=== PATIENT | female | born 1985 | race Hispanic/Latino ===

== ENCOUNTER 2016-11-19 09:08 | Day surgery (SDC) | payer BC ==
[2016-11-15 10:21] LABS: Hematocrit 39.5 % (30.3-42.9); Mean Corpuscular HGB Conc 33 % (30-34); Mean Corpuscular Hemoglobin 27 pg (28-32); Mean Corpuscular Volume 83 fl (79-97); Platelet Count 344 K/mm3 (140-440); Red Blood Count 4.78 M/mm3 (3.65-5.03); Red Cell Distribution Width 13.8 % (13.2-15.2); White Blood Count 10.2 K/mm3 (4.5-11.0)
--- NOTE | 2016-11-15 10:27 | Anesthesia Consultation ---
Anesthesia Consult and Med Hx Date of service: 11/15/16 - Airway Anesthetic Teeth Evaluation: Good, Crowns ROM Head & Neck: Adequate Mental/Hyoid Distance: Adequate Mallampati Class: Class II Intubation Access Assessment: Probably Good - Pulmonary Exam CTA: Yes - Cardiac Exam Cardiac Exam: RRR - Pre-Operative Health Status ASA Pre-Surgery Classification: ASA3 Proposed Anesthetic Plan: General - Pulmonary Hx Smoking: Yes - Central Nervous System Hx Psychiatric Problems: No - Other Systems Hx Alcohol Use: Yes (occas) Hx Cancer: No Hx Obesity: Yes (BMI 44) - Additional Comments Anesthesia Medical History Comments: NAC
--- NOTE | 2016-11-18 13:05 | History and Physical Report ---
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 Operations: Cholecystectomy Abnormal PAP: positive Infection History Hx of STD: HSV Active Medications (reviewed today): IBUPROFEN 800 MG TABS (IBUPROFEN) 1 po TID (PRN) OXYCODONE-ACETAMINOPHEN 5-325 MG TABS (OXYCODONE-ACETAMINOPHEN) 1-2po q6h prn TRANEXAMIC ACID 650 MG TABS (TRANEXAMIC ACID) 1300 mg(2 tabs) 3 times daily ( 3900 mg daily) for up to 5 days during monthly menstruation Current Allergies (reviewed today): No known allergies Past Medical History: Reviewed history from 10/18/2009 and no changes required: Negative Past Medical History Past Surgical History: Reviewed history from 10/18/2009 and no changes required: Cholecystectomy Risk Factors: Smoked Tobacco Use: Never smoker Alcohol use: yes Type: occ PAP Smear History: Date of Last PAP Smear: 09/27/2015 Review of Systems General Denies fever, chills, sweats, anorexia, fatigue, weakness, malaise, weight loss and sleep disorder. Complains of menorrhagia. Denies vaginal discharge, incontinence, dysuria, hematuria, urinary frequency, amenorrhea, abnormal vaginal bleeding, pelvic pain, genital sores, decreased libido, painful periods, painful sex, urinary urgency, hot flashes, vaginal dryness, vaginal itching and vaginal odor. CV Denies chest pains, palpitations, syncope, dyspnea on exertion, orthopnea, PND and peripheral edema. Resp Denies cough, dyspnea at rest, excessive sputum, hemoptysis, wheezing and pleurisy. GI Denies nausea, vomiting, diarrhea, constipation, change in bowel habits, abdominal pain, melena, hematochezia, jaundice, gas/bloating, indigestion/ heartburn, dysphagia and odynophagia. Endo Denies cold intolerance, heat intolerance, polydipsia, polyphagia, polyuria and unusual weight change. Breast Denies left breast lump, right breast lump, nipple discharge, bloody discharge from nipple, breast pain, abnormal mammogram and breast enlargement. MS Denies back pain, joint pain, joint swelling, muscle cramps, muscle weakness, stiffness, arthritis, sciatica, restless legs, leg pain at night and leg pain with exertion. Derm Denies rash, itching, dryness and suspicious lesions. Neuro Denies paralysis, paresthesias, headache, seizures, tremors, vertigo, transient blindness, frequent falls, frequent headaches and difficulty walking. Psych Denies depression, anxiety, irritability and mood swings. Eyes Denies blurring, diplopia, irritation, discharge, vision loss, eye pain and photophobia. ENT Denies earache, ear discharge, tinnitus, decreased hearing, nasal congestion, nosebleeds, sore throat and hoarseness. Allergy Denies urticaria, allergic rash, hay fever and recurrent infections. Heme Denies abnormal bruising, bleeding and enlarged lymph nodes. Physical Exam Appearance: well developed, well nourished, no acute distress Other Exams Lungs: no rales, rhonchi, or wheezes Heart: S1, S2, no murmur, rub, or gallop Abdomen: soft, non-tender, no masses Skin: no ulcers, xanthomas Lymph: no cervical, axillary, or inguinal adenopathy Extremities: normal alignment, no joint enlargement, crepitus, masses or tenderness; normal tone and strength Genitourinary Exam Vulva: normal, no lesions or discharge Urethral meatus: normal size and location, no lesions or discharge Urethra: no discharge Bladder: no cystocele Vagina: normal appearance, no discharge, lesions. No evidence of cystocele or rectocele. Cervix: normal appearance, no lesions, no discharge Uterus: normal position, midline, mobile Adnexa: no masses or tenderness Impression & Recommendations: Problem # 1: Menorrhagia (ICD-626.2) (PEI66-G09.0) Consent reviewed and signed . Possible laparoscopy or laparotomy explained to patient. The risks and alternatives for this surgery were reviewed with the patient. She was informed of possible bleeding, infection, injury to bowel, bladder, ureters or other adjacent organs. She was informed the bleeding may continue to be heavy or may become heavy again The only definitive therapy for menorrhagia is hysterectomy. The patient was instructed/informed the following: The normal length of hospital stay for this procedure. Nothing to eat or drink after midnight the evening prior to surgery. Clear liquids the day before surgery. Fleets enema the day prior to surgery. Pre-op instruction sheets given. Wound care instructions given. Infection precautions reviewed, patient to call for any signs or symptoms of infection. The usual discomforts associated with this procedure were detailed. Proper use of pain medicines was reviewed. Patient was given ample opportunity to have all her questions answered before signing informed consent. She desires to proceed with Hysteroscopy, D&C, excision of endometrial mass and endometrial ablation. Problem # 2: Sterilization (ICD-V25.2) (LLM91-S87.2) Risks of regret emphasized. Permanent and irreversible condition explained to patient. Pt verbalized understanding. Consent reviewed and signed. Pre- operative instructions sheets given. The risks and alternatives to this surgery were reviewed with the patient. Infection precautions reviewed, pt to call for any signs or symptoms of infection. Patient given ample opportunity to have all her questions answered before signing informed consent. Patient informed of possible bleeding. 1%failure rate emphasized She desires salpingectomy for sterilization Problem # 3: Endometrial mass (ICD-236.0) (PWG97-U73.0) Problem # 4: Fibroids of uterus; Subserosal (ICD-218.2) (OPC96-J79.2) Her updated medication list for this problem includes: Ibuprofen 800 Mg Tabs (Ibuprofen) ..... 1 po tid (prn) Oxycodone-acetaminophen 5-325 Mg Tabs (Oxycodone-acetaminophen) ..... 1-2po q6h prn Medications Added to Medication List This Visit: 1) Ibuprofen 800 Mg Tabs (Ibuprofen) .... 1 po tid (prn) 2) Oxycodone-acetaminophen 5-325 Mg Tabs (Oxycodone-acetaminophen) .... 1-2po q6h prn Prescriptions: IBUPROFEN 800 MG TABS (IBUPROFEN) 1 po TID (PRN) #30 x 0 Entered and Authorized by: Heather Thaap MD Method used: Print then Give to Patient RxID: [id number] OXYCODONE-ACETAMINOPHEN 5-325 MG TABS (OXYCODONE-ACETAMINOPHEN) 1-2po q6h prn # 15 x 0 Entered and Authorized by: Heather Thapa MD Method used: Print then Give to Patient RxID: [id number] Medications and Allergies Allergies Allergy/AdvReac Type Severity Reaction Status Date / Time No Known Allergies Allergy Unverified 11/12/16 11:28 Home Medications Medication Instructions Recorded Confirmed Last Taken Type No Known Home Medications [No 11/12/16 11/12/16 Unknown History Reported Home Medications] Active Meds: Active Medications Famotidine (Pepcid) 20 mg PO PREOP NR Stop: 11/19/16 23:59 Lactated Ringer's (Lactated Ringers) 1,000 mls @ 100 mls/hr IV DIRECT ALEX Stop: 11/19/16 23:59 Cefazolin Sodium (Ancef/Sterile Water 2 Gm/20 Ml) 2 gm in 20 mls @ 80 mls/hr IV PREOP NR PRN Reason: Protocol Stop: 11/19/16 23:59 Metoclopramide HCl (Reglan) 10 mg PO PREOP NR Stop: 11/19/16 23:59 Midazolam HCl (Versed) 2 mg IV PREOP NR Stop: 11/19/16 23:59 Exam Vital Signs Temp Pulse Resp BP 99.2 F 84 16 138/80 11/15/16 10:00 11/15/16 10:00 11/15/16 10:00 11/15/16 10:00 Results - Labs 11/15/16 10:05 Assessment and Plan - Patient Problems (1) Menorrhagia Status: Acute Qualifiers: Menorrahagia type: M (2) Sterilization Status: Acute
[~2016-11-19 09:08] MED LIST: ANCEF/STERILE WATER 2 GM/20 ML 2 GM/20 ML SYRINGE IV NR; LACTATED RINGERS 1,000 ML IV SCH; PEPCID PO NR; REGLAN PO NR; VERSED IV NR
[2016-11-19] MEDS ORDERED: NACL BACTERIOSTATIC INFILTRATI ONE (09:37)
[2016-11-19] MEDS ORDERED: DILAUDID ONE ×2 (10:52→15:16)
[2016-11-19] MEDS ORDERED: DIPRIVAN 10 MG/ML IV ONE (10:52)
--- NOTE | 2016-11-19 12:40 | Anesthesia Day of Surgery ---
Anesthesia Day of Surgery - Day of Surgery Patient Examined: Yes Patient H&P Reviewed: Yes Patient is NPO: Yes
[2016-11-19] MEDS ORDERED: ROBINUL ONE (12:58)
[2016-11-19] MEDS ORDERED: TRANSDERM-SCOP TD NR (13:00)
[2016-11-19] MEDS ORDERED: DECADRON ONE (13:16)
[2016-11-19] MEDS ORDERED: BLOXIVERZ ONE (13:16)
[2016-11-19] MEDS ORDERED: ZOFRAN ONE (13:16)
[2016-11-19] MEDS ORDERED: ZEMURON IV ONE (13:17)
[2016-11-19] MEDS ORDERED: XYLOCAINE MPF 2% ONE (13:17)
[2016-11-19] MEDS ORDERED: QUELICIN ONE (13:17)
[2016-11-19] MEDS ORDERED: NACL 0.9% IR ONE (14:00)
--- NOTE | 2016-11-19 14:49 | Operative Report ---
Operative Report Operative Report: Date of procedure: 11/19/2016 Pre-operative diagnosis: 1. Menorrhagia 2. Desires sterilization by bilateral salpingectomy Post-operative diagnosis: 1. Menorrhagia 2. Desires sterilization by bilateral salpingectomy Procedure name(s): 1. Diagnostic hysteroscopy 2. Dilation and curettage 3. NovaSure ablation 4. Laparoscopic bilateral salpingectomy Surgeon: Heather Thapa MD Signal Intelligence Analyst: [] Anesthesia: Gen. anesthesia Findings: Uterine cavity length 5 cm, Uterine cavity width 4.4 cm Ablation time 65 seconds Power 121 W Complications: None EBL: Minimal Procedure: After risks, benefits, complications, consequences, and alternatives for this procedure were discussed the patient and she voiced understanding and her desire to proceed, she was taken to the OR and placed in the supine position. General anesthesia was induced. The patient was placed in the dorsal lithotomy position. She was then prepped and draped in the usual sterile fashion. Timeout was performed. A Santillan catheter was introduced into the bladder with drainage of clear yellow urine. A bivalve speculum was introduced into the vagina. The anterior lip the cervix was grasped with a single-tooth tenaculum. The uterus was sounded to approximately 9 cm. The cervix was progressively dilated to allow the diagnostic hysteroscope. Grossly normal intrauterine cavity was noted. No obvious evidence perforation or intrauterine mass noted. Uterine curettage was performed. The hysteroscope was introduced again. Again no evidence of perforation was noted. Cervical length was measured to be 4 cm. Therefore uterine cavity length was 5 cm. Cavity length on the NovaSure ablation device was set at 5 cm. The NovaSure device was then placed inside the uterine cavity. The array was released. Uterine cavity width was measured at 4.4 cm. Once the cavity integrity was confirmed, ablation was performed at 121 W of energy for 65 seconds. The device was removed. The hysteroscope was reintroduced into the uterine cavity. Good ablation was noted. No obvious evidence of perforation was noted. A PartTec uterine manipulator was introduced into the uterus. Single-toothed tenaculum and speculum were removed. Sterile gloves were placed, and attention was turned to the abdomen. A 5 mm infraumbilical incision was made. A 5 mm Optiview trocar was introduced through this incision with scope and camera attached under direct visualization. No bowel, bladder, ureteral, or major vascular injury was noted. The abdomen was insufflated, and patient was placed in steep Trendelenburg position. Again no bowel, bladder, ureteral or major vascular injury was noted. A 5 mm trochar was placed in the midline suprapubic region approximately 2 cm above the symphysis under direct visualization. Again no bowel, bladder, ureteral or major vascular injury was noted. An additional 5 mm trocar was placed in the right lower abdominal region through an incision. No bowel bladder or ureteral or major vascular injury was noted. The uterus was elevated and using the 5 mm LigaSure device the tubes were removed. Specimens were sent to pathology as permanent and separate containers. The abdomen was desufflated under direct visualization. Hemostasis was noted. The pelvis was inspected and again no bowel, bladder, ureteral or major vascular injury was noted. Also hemostasis at the operative site was noted. The lower abdominal trochars were removed under direct visualization. Hemostasis was noted. The abdomen was desufflated appeared. The infraumbilical trocar was removed. The incisions were reapproximated using 4-0 Vicryl in a subcuticular manner. Hemostasis was noted. The incisions were healed with Surgiseal. The Sargis uterine manipulator was removed, no bleeding from the vagina was noted the procedure was ended. The patient tolerated the procedure well and was taken to recovery room in stable condition. Saline solution was used along with the Aquilex management device. Fluid deficit was noted to be 131 mL. There was approximately 75 mL of saline solution on the floor at the end of the procedure. Counts were correct x3.
[2016-11-19] MEDS ORDERED: TORADOL IV ONE (14:50)
--- NOTE | 2016-11-19 14:56 | Discharge Summary ---
Providers - Providers Attending physician: LEONIE BARRERA Primary care physician: KERI SANDERSON Hospitalization Condition: Good Hospital course: Normal Disposition: DISCHARGED TO HOME OR SELFCARE - Discharge Diagnoses (1) Menorrhagia Status: Acute Qualifiers: Menorrahagia type: M (2) Sterilization Status: Acute Core Measure Documentation - Palliative Care Palliative Care/ Comfort Measures: Not Applicable - Core Measures Any of the following diagnoses?: none Exam - Constitutional Vitals: Temp Pulse Resp BP Pulse Ox 98.6 F 89 24 113/71 97 11/19/16 10:58 11/19/16 10:58 11/19/16 10:58 11/19/16 10:58 11/19/16 10:58 General appearance: Present: no acute distress - Respiratory Respiratory effort: normal - Cardiovascular Rhythm: regular - Abdominal Female genitourinary: Present: deferred - Psychiatric Psychiatric: appropriate mood/affect Plan Activity: advance as tolerated (No sex [id number]) Weight Bearing Status: Weight Bear as Tolerated Diet: regular Wound: open to air, keep clean and dry Special Instructions: no heavy lifting Follow up with: LEONIE BARRERA MD [Staff Physician] - 7 Days
--- NOTE | 2016-11-19 15:06 | Post Anesthesia Evaluation ---
- Post Anesthesia Evaluation Patient Participated: Yes Airway Patent: Yes Stable Respiratory Function: Yes Nausea/Vomiting: No Temp > 96.8F: Yes Pain Manageable: Yes Adequeate Hydration: Yes Anesthesia Complications: No Block Receding Appropriately: Not Applicable Patient on Ventilator: No
[2016-11-19] MEDS: DILAUDID IV PRN ×2 (15:15→15:30)
[2016-11-19 17:25] VITALS: BP 110/68
--- NOTE | 2016-11-20 01:12 | Admit Criteria Form ---
Admission Criteria Documentation: AMBULATORY SURGERY EXCEPTION CRITERIA Ambulatory Surgery Exception Criteria ( Place 'X' for any and all applicable criteria): Surgery or procedure performed on ambulatory basis may require inpatient stay for[A] ANY ONE of the following(1)(2)(3)(4)(5)(6)(7)(8)(9): [X] I. A preoperative situation, condition, or finding that warrants inpatient stay as indicated by ANY ONE of the following: [] a) Inpatient care needed because of severity of a disease or condition rather than the surgery (eg, severe cardiac or respiratory disease, severe infection) (15) (16 ) (17) (18) [] b) Emergent procedure (eg, angioplasty for acute ischemia)(19) [] c) Complex surgical approach or situation as indicated by ANY ONE of the following(3): [] i) Open approach needed instead of usual endoscopic, transcatheter, or other less invasive procedure [] ii) Difficult approach because of previous operation [] iii) Airway monitoring required after open neck procedures(20)(21) [] iv) Large mass requiring unusually extensive dissection [] v) Additional complicating feature requiring inpatient care (eg, drain management)(22(23): [X] d) Major surgery in a pt with high anesthetic risk as indicated by ANY ONE of the following (2)(3)(5)(7)(8): [X] i) ASA risk class III or higher (severe systemic disease impairing function) [D] [] ii) Advanced age (eg, older than 85 years)(14)(24) [] iii) Symptomatic heart failure(25) [] iv) Symptomatic asthma or COPD(8)(21) [] v) Morbid obesity with hemodynamic or respiratory problems(20)( 21)(26)(27) [] vi) Obstructive sleep apnea(20)(21) [] vii) Former premature infants who are younger than 60 weeks [] viii) High risk for severe postoperative abnormalities (eg, severe postoperative hypocalcemia after parathyroidectomy for severe hyperparathyroidism)(27)( 28) [] ix) Unstable angina(25) [] e) Drug-related risk requiring inpatient stay as indicated by ANY ONE of the following(5)(10)(14)(32)(33) [] i) Procedure requires discontinuing drugs or other therapy (eg , antiarrhythmic medication, antiseizure medication), which necessitates inpatient observation or treatment.(18)(31) [] ii) Major surgery and high risk drug use as indicated by ANY ONE of the following: [] 1) Active abuse of cocaine or similar drug [] 2) Monoamine oxidase inhibitor use [] 3) Other drug identified as posing risk [] f) Inadequate outpatient care situation as indicated by ANY ONE of the following(5)(10)(14)(32)(33) [] i) Patient lives remote from medical facility and procedure has urgent complication potential, and temporary nearby residence cannot be arranged [] ii) Patient will have postprocedure incapacitation and inadequate assistance at home, or alternative level of care cannot be arranged. [] iii) Patient will have long general anesthesia or procedure side effect resolution time, and competent person to stay with patient on first postoperative night at home or alternative level of care cannot be arranged. []iv) Other inadequate outpatient situation that cannot be handled by other means [] II. A perioperative event, condition, or finding that warrants inpatient stay as indicated by ANY ONE of the following (1)(2)(3): [] a) Inadequate physiologic recovery: cardiovascular, respiratory, or hemodynamic status not normal or near preoperative baseline(18) [] b) Hemodynamic instability [] c) Patient not alert with near normal or baseline mental status [] d) Temperature not normal or as expected and not appropriate for outpatient treatment of condition [] e) Ambulatory or appropriate activity level status not yet achieved post procedure [E](34)(35)(36) [] f) Operative site not appropriate (eg, unexpected or excessive drainage or bleeding) [] g) Postoperative effects not resolved or adequately managed (eg, significant pain or vomiting not appropriate for outpatient or next level of care)(10)(12) [] h) Complicating features requiring inpatient care as indicated by ANY ONE of the following(37): [] i) Severe complications of procedure (eg, bowel injury, airway compromise, vascular injury,severe hemorrhage) [] ii) Extensive (eg, dissection far beyond usual scope of procedure ) or prolonged (eg, 120 minutes beyond usual) surgery needed requiring inpatient postoperative care [] iii) Conversion to an open or complex procedure that requires inpatient care (eg, open vs laparoscopic cholecystectomy, abdominal vs vaginal hysterectomy)(38) [] iv) Comorbid condition or test result identified during or post procedure that requires inpatient care (7) [] v) Malignant hyperthermia(30) [] vi) Other complicating feature requiring inpatient care(22)(23) Inpatient stay may be needed until ALL of the following are present (1)(2)(3)(4) (5)(6)(10)(14)(33)(40): []a) Physiologic recovery: cardiovascular, respiratory, and hemodynamic status normal or near preoperative baseline []b) Hemodynamic stability []c) Patient alert, with near normal or baseline mental status []d) Temperature appropriate: patient afebrile or temperature appropriate for outpt treatment of condition []e) Activity level appropriate: ambulatory or appropriate activity level post procedure []f) Operative site appropriate as indicated by ALL of the following: []i) Site dry or with expected drainage []ii) Any blood noted is as expected for procedure. []g) Postoperative effects resolved or managed as indicated by ALL of the following: []i) Pain management appropriate for outpatient (or next level of) care(10) []ii) Minimal nausea and vomiting: if present, successfully treated with oral medication(12) []iii) Headache, dizziness, or drowsiness (if present) are mild. []h) Voiding status acceptable as indicated by ANY ONE of the following: []i) Voiding spontaneously []ii) No voiding but instructions given for follow-up in 6 to 8 hours []iii) Urinary catheter in place, and instructions given for follow-up []i) Complicating features requiring inpatient care manageable at a lower level of care(37) []j) Comorbid conditions manageable at a lower level of care(37) The original [employer] content created by [employer] has been revised. The portions of the content which have been revised are identified through the use of italic text or in bold, and [facility] [employer] has neither reviewed nor approved the modified material. All other unmodified content is copyright [employer]. Please see references footnoted in the original [employer] edition 2016 Admission Criteria Met: Yes
== END 2016-11-19 16:55 | disposition home or self-care (01) ==
LOC: OR 09:08
PROVIDERS: ATTEND Obstetrics & Gynecology
DX: Z30.2 Encounter for sterilization (principal); N92.0 Excessive and frequent menstruation with regular cycle; E66.9 Obesity, unspecified; Z68.41 Body mass index [BMI] 40.0-44.9, adult; Z87.891 Personal history of nicotine dependence; Z90.49 Acquired absence of other specified parts of digestive tract; Z72.89 Other problems related to lifestyle
CPT/HCPCS: 36415; 58563; 58661; 81025; 85027; 86850; 86900; 86901; 88302; 88305; A4217; J0330; J0690; J1100; J1170; J1885; J2250; J2405; J2704; J2710; J7120